=== PATIENT | female | born 1930 | race African-American/Black ===

== ENCOUNTER 2016-08-21 16:16 | Emergency (ER) | payer BC ==
[~2016-08-21 16:16] MED LIST: ASAB PO; CARDCD120 PO; DIGITEK0.125 MG PO; FERROUS SULF325 M1 PO; HALF81 PO; KDUR20 PO; KLOR-CON M2020 MEQ PO; LOP25 PO; MCZ25 PO; PRILO PO; PRIN20 PO; REG PO; VITAMIN D1000 UNI1 PO; ZESTORETIC1 TA1 PO; [UNRECOGNIZED DRUG - OTHER] PO
[2016-08-21 17:56] LABS: BASOPHILS 0.1 %; BASOPHILS ABSOLUTE 0.01 10/3/uL (0.0-0.16); EOSINOPHILS 0.2 %; EOSINOPHILS ABSOLUTE 0.02 10/3/uL (0.0-0.53); ER CBC TAT 0 Hrs 15 Mins; HEMATOCRIT 28.8 % (36.0-48.0); HEMOGLOBIN 9.7 g/dL (12.0-16.0); IMMATURE GRANULOCYTES 0.7 %; IMMATURE GRANULOCYTES ABSOLUTE 0.06 10/3/uL (0.0-0.11); LYMPHOCYTES 9.7 %; LYMPHOCYTES ABSOLUTE 0.85 10/3/uL (0.67-4.30); MANUAL DIFF NO %; MEAN CORPUS HGB CONC 33.7 g/dL (32.0-36.0); MEAN CORPUSCULAR VOLUME 83.2 fL (80-100); MEAN PLATELET VOLUME 9.3 fL (9.2-13.0); MONOCYTES 8.8 %; MONOCYTES ABSOLUTE 0.77 10/3/uL (0.21-1.20); NEUTROPHILS 80.5 %; NEUTROPHILS ABSOLUTE 7.05 10/3/uL (2.02-8.40); PLATELET COUNT 252 10/3/uL (150-400); RBC DISTRIBUTION WIDTH 14.2 % (12.0-16.0); RED CELL COUNT 3.46 10/6/uL (4.0-5.6); WHITE BLOOD CELLS 8.8 10/3/uL (4.5-10.5)
[2016-08-21 18:03] LABS: A/G RATIO 0.4 (0.7-1.9); ALBUMIN 2.3 G/DL (3.5-5.0); BUN (BLOOD UREA NITROGEN) 16 MG/DL (6-23); CHLORIDE, SERUM 103 MMOL/L (96-112); GFR AFRICAN AMERICAN 43 ML/MIN (>=60); GFR NON AFRICAN AMERICAN 37 ML/MIN (>=60); GLOBULIN 5.5 G/DL (2.5-4.1); SGOT(AST) 55 U/L (5-40); SGPT(ALT) 44 U/L (5-65); SODIUM, SERUM 139 MMOL/L (135-148); TOTAL BILIRUBIN 0.9 MG/DL (0-1.2); TOTAL PROTEIN 7.8 G/DL (6.0-8.5)
[2016-08-21 18:05] LABS: LACTATE 2.7 MMOL/L (0.3-2.4)
[2016-08-21 18:06] LABS: ALKALINE PHOSPHATASE 142 U/L (45-117); CO2 (CARBON DIOXIDE) 28 MMOL/L (24-34); GLUCOSE, SERUM 215 MG/DL (60-99)
[2016-08-21 19:10] LABS: ASCORBIC ACID (UR NOT ORDER) NEG (NEG); BILIRUBIN, URINE NEGATIVE (NEG); KETONE, URINE NEGATIVE (NEG); LEUKOCYTE ESTERASE(NOT OR SMALL (NEG); NITRITE (URINE) NEG (NEG); WBC (NOT ORDERED) (RFLEX) 12 (0-5)
[2016-09-09] MEDS ORDERED: XELODA PO (11:59)
[2016-09-09] MEDS ORDERED: CARTIA XT120 MG/24 PO (11:59)
[2016-09-09] MEDS ORDERED: OXYCOD PO (11:59)
[2016-09-09] MEDS ORDERED: MEGACEUDL PO (11:59)
[2016-09-09] MEDS ORDERED: FERROUS SULF325 M1 PO (12:00)
[2016-09-09] MEDS ORDERED: PRIN20 PO (12:00)
[2016-09-09] MEDS ORDERED: LOP25 PO (12:00)
[2016-09-09] MEDS ORDERED: PRILO PO (12:00)
[2016-09-09] MEDS ORDERED: CAPECITABINE PO (13:28)
[2016-09-19] MEDS ORDERED: DSS PO (23:24)
[2016-09-19] MEDS ORDERED: CARDCD120 PO (23:24)
[2016-09-19] MEDS ORDERED: NORV5 PO (23:24)
[2016-09-19] MEDS ORDERED: MIRALAX POWDER1 PKT PO (23:24)
[2016-09-19] MEDS ORDERED: FERROUS SULF325 M1 PO (23:24)
[2016-09-19] MEDS ORDERED: BIST PO (23:25)
[2016-09-19] MEDS ORDERED: LOP25 PO (23:25)
[2016-09-19] MEDS ORDERED: METPAKSF PO (23:25)
[2016-09-19] MEDS ORDERED: PROTONIX PO (23:25)
[2016-09-19] MEDS ORDERED: ZOFRAN4 PO (23:29)
[2016-09-19] MEDS ORDERED: OXYCOD PO (23:29)
[2016-09-19] MEDS ORDERED: MOMUD PO (23:29)
== END 2016-08-21 19:53 | disposition home or self-care (01) ==
LOC: ER 16:16
PROVIDERS: Nurse Practitioner Family
DX: N39.0 Urinary tract infection, site not specified (principal); C22.8 Malignant neoplasm of liver, primary, unspecified as to type; I10 Essential (primary) hypertension; I25.10 Atherosclerotic heart disease of native coronary artery without angina pectoris; J44.9 Chronic obstructive pulmonary disease, unspecified; I48.91 Unspecified atrial fibrillation; D64.9 Anemia, unspecified; F17.210 Nicotine dependence, cigarettes, uncomplicated; Z79.82 Long term (current) use of aspirin; Z79.899 Other long term (current) drug therapy
CPT/HCPCS: 71010; 74176; 80053; 81001; 83605; 83690; 85025; 87086; 93005; 96374; 99285; J2405